=== PATIENT | female | born 1955 | race Caucasian/White ===

== ENCOUNTER 2017-01-24 10:29 | Emergency (ER) | payer BC ==
[~2017-01-24] VITALS: Ht 162.6 cm; Wt 82.3 kg
[~2017-01-24 10:29] MED LIST: ASPI81CH CHEW; ATOR1TAB18 PO; CARB25TA9 PO; HYDR-3583 PO; HYDR12.57 PO; LISI10TA3 PO; LORC10TA24 PO; MELO-1 PO; METH8TAB3 PO; METO25TA3 PO; NALO1TAB2 PO; ROPI1TAB72 PO
[2017-01-24 11:13] VITALS: BP 195/95; PULSE 76; RESP 18; TEMP 98.6; O2SAT 95
[2017-01-24] MEDS ORDERED: SODIUM CHLOR 0.9% 1000 ML INJ 1,000 ML IV ONE (11:49)
--- NOTE | 2017-01-24 11:58 | PD ---
HPI Chief Complaint: Abnormal Results Time Seen by Provider: 11:17 Travel History International Travel<30 days: No Contact w/Intl Traveler<30days: No Traveled to known affect area: No History of Present Illness HPI The patient is a 61-year-old female who presents to the emergency department for headache and elevated blood pressure. The patient has a history of hypertension and currently takes fosinopril 10 mg daily, hydrocodone eyes, and metoprolol. The patient recently saw her primary physician, Dr. Li, who stated she may need increase her lisinopril dose with her increasing blood pressure. The patient states over the last week she has had some right sided neck pain and right sided headache is located behind the right eye. She has mild pain with extraocular movement of the right eye when she looks medially, also complains of mild vision changes of the last 2 weeks but does note she recently had her eyeglasses changed. The patient is followed by a neurologist for Parkinson's disease and recently had an outpatient MRI several weeks ago and has an appointment in the near future with Dr. Cormier. She denies any nausea or vomiting with the headache, but does note the pain is located retro- orbitally and worse with extraocular movements. She denies any focal deficits. The patient does have a history of carotid stenosis on the right side less than 40%. PFSH Past Medical History Hx Anticoagulant Therapy: Yes (ASA) Arthritis: Yes Asthma: No Autoimmune Disease: No Blood Disorders: No Anxiety: Yes Depression: Yes Heart Rhythm Problems: No Cancer: No Cardiac Catheterization: Yes ([address] solitario 2003) Cardiovascular Problems: Yes (hx of heart attack) High Cholesterol: Yes Chemotherapy: No Chest Pain: No Congestive Heart Failure: No COPD: No Cerebrovascular Accident: No Coronary Artery Disease: Yes Diabetes: No Diminished Hearing: No Endocrine: No Gastrointestinal Disorders: Yes (ACID REFLUX) GERD: Yes Genitourinary: No Hepatitis: No Hiatal Hernia: No Hypertension: Yes Immune Disorder: No Kidney Stones: No Musculoskeletal: Yes Neurologic: Yes (parkinsons, dystonia) Parkinson's Disease: Yes Psychiatric: No Reproductive: No Respiratory: No Immunizations Current: Yes Migraines: No Myocardial Infarction: No Radiation Therapy: No Renal Failure: No Seizures: No Sickle Cell Disease: No Thyroid Disease: No Influenza Vaccination: No ?: Not Menopausal: Yes : 7 Para: 3 Miscarriage: 2 : 2 Ovarian Cysts: Yes Past Surgical History Abdominal Surgery: No AICD: No Arteriovenous Shunt: No Body Medical Devices: CARDIAC STENT Cardiac Surgery: Yes (2003) Coronary Artery Bypass Graft: No Ear Surgery: No Endocrine Surgery: No Eye Surgery: No Genitourinary Surgery: No Gynecologic Surgery: No Insulin Pump: No Joint Replacement: No Oral Surgery: No Pacemaker: No Thoracic Surgery: No Other Surgery: Yes (SINUS SURGERY X 3) Family History Family Myocardial Infarction: Yes Social History Alcohol Use: Yes (occasionally) Tobacco Use: No (FORMER) Substance Use: Yes (marijuana seldom) Allergies-Medications (Allergen,Severity, Reaction): Coded Allergies: meperidine (Unverified Allergy, Severe, BODY LOCKED UP, 01/24/17) Sulfa (Sulfonamide Antibiotics) (Unverified Allergy, Mild, HIVES, 01/24/17 ) midazolam (Unverified Allergy, Mild, Shortness of Breath, 01/24/17) penicillin G (Unverified Allergy, Mild, HIVES, 01/24/17) Reported Meds & Prescriptions Reported Meds & Active Scripts Active Reported Methylprednisolone 8 Mg Tab 4 Mg PO DAILY Meloxicam 15 Mg Tab 15 Mg PO DAILY Hydrocodone-Acetaminophen 10-325 mg Tab 1 Tab PO Q4H PRN Belviq (Lorcaserin) 10 Mg Tab 10 Mg PO BID Requip (Ropinirole) 1 Mg Tab 1 Mg PO TID Atorvastatin (Atorvastatin Calcium) 80 Mg Tab 80 Mg PO HS Aspirin 81 Mg Chew 81 Mg CHEW DAILY Movantik (Naloxegol) 25 Mg Tab 25 Mg PO DAILY Carbidopa-Levodopa 25-100 Mg Tab 2 Tab PO TID Metoprolol Tartrate 25 Mg Tab 25 Mg PO DAILY Lisinopril 10 Mg Tab 10 Mg PO DAILY Hydrochlorothiazide 12.5 Mg Cap 12.5 Mg PO DAILY Review of Systems Except as stated in HPI: all other systems reviewed are Neg General / Constitutional: No: Fever Eyes: Positive: Visual changes, No: Photophobia HENT: Positive: Headaches, Neck Pain Cardiovascular: No: Chest Pain or Discomfort Respiratory: No: Shortness of Breath Gastrointestinal: No: Nausea, Vomiting, Abdominal Pain Musculoskeletal: No: Weakness Neurologic: Positive: Headache, No: Change in Mentation Physical Exam Narrative GENERAL: Awake, alert, pleasant 61-year-old female who appears her stated age and is in no acute respiratory distress. SKIN: Focused skin assessment warm/dry. HEAD: Atraumatic. Normocephalic. EYES: Pupils equal and round. Pupils are 3 mm bilateral and reactive. Mild injection to the right eye, mild chemosis. No obvious proptosis. Extraocular muscles are intact, however, patient has pain when she looks medially with the right eye. Patient is able to see fingers at a distance of 2 feet without difficulty. Gunnar-Pen pressure is 12. ENT: No nasal bleeding or discharge. Mucous membranes pink and moist. NECK: Trachea midline. No JVD. No bruit noted on the right. CARDIOVASCULAR: Regular rate and rhythm. No murmur appreciated. RESPIRATORY: No accessory muscle use. Clear to auscultation. Breath sounds equal bilaterally. GASTROINTESTINAL: Abdomen soft, non-tender, nondistended. Hepatic and splenic margins not palpable. MUSCULOSKELETAL: No obvious deformities. No clubbing. No cyanosis. No edema. NEUROLOGICAL: Awake and alert. No obvious cranial nerve deficits. Motor grossly within normal limits. Normal speech. Nonfocal. Oriented 4. PSYCHIATRIC: Appropriate mood and affect; insight and judgment normal. Data Data Last Documented VS Vital Signs Date Time Temp Pulse Resp B/P (MAP) Pulse Ox O2 Delivery O2 Flow Rate FiO2 01/24/17 13:00 74 16 173/92 (119) 98 Room Air 01/24/17 11:13 98.6 Orders Orders Complete Blood Count With Diff (01/24/17 11:49) Comprehensive Metabolic Panel (01/24/17 11:49) [place] Sedimentation Rate (01/24/17 11:49) Ecg Monitoring (01/24/17 11:49) Iv Access Insert/Monitor (01/24/17 11:49) Oximetry (01/24/17 11:49) Sodium Chloride 0.9% Flush (Ns Flush) (01/24/17 12:00) Prochlorperazine Inj (Compazine Inj) (01/24/17 12:00) Diphenhydramine Inj (Benadryl Inj) (01/24/17 12:00) Sodium Chlor 0.9% 1000 Ml Inj (Ns 1000 M (01/24/17 11:49) Morphine Inj (Morphine Inj) (01/24/17 12:00) Proparacaine 0.5% Opth Soln (Alcaine 0.5 (01/24/17 12:00) Mrv Brain W/Wo Contrast (01/24/17 ) Mri Brain W/O Contrast (01/24/17 ) Ed Discharge Order (01/24/17 14:22) Labs Laboratory Tests Test 01/24/17 12:13 White Blood Count 13.4 TH/MM3 Red Blood Count 4.49 MIL/MM3 Hemoglobin 13.8 GM/DL Hematocrit 41.0 % Mean Corpuscular Volume 91.3 FL Mean Corpuscular Hemoglobin 30.6 PG Mean Corpuscular Hemoglobin Concent 33.6 % Red Cell Distribution Width 13.6 % Platelet Count 248 TH/MM3 Mean Platelet Volume 7.5 FL Neutrophils (%) (Auto) 87.1 % Lymphocytes (%) (Auto) 7.5 % Monocytes (%) (Auto) 3.6 % Eosinophils (%) (Auto) 0.1 % Basophils (%) (Auto) 1.7 % Neutrophils # (Auto) 11.7 TH/MM3 Lymphocytes # (Auto) 1.0 TH/MM3 Monocytes # (Auto) 0.5 TH/MM3 Eosinophils # (Auto) 0.0 TH/MM3 Basophils # (Auto) 0.2 TH/MM3 CBC Comment DIFF FINAL Differential Comment Erythrocyte Sedimentation Rate 5 mm/hr Blood Urea Nitrogen 18 MG/DL Creatinine 0.74 MG/DL Random Glucose 105 MG/DL Total Protein 7.4 GM/DL Albumin 3.9 GM/DL Calcium Level 9.6 MG/DL Alkaline Phosphatase 61 U/L Aspartate Amino Transf (AST/SGOT) 18 U/L Alanine Aminotransferase (ALT/SGPT) 15 U/L Total Bilirubin 0.6 MG/DL Sodium Level 140 MEQ/L Potassium Level 4.0 MEQ/L Chloride Level 106 MEQ/L Carbon Dioxide Level 27.5 MEQ/L Anion Gap 7 MEQ/L Estimat Glomerular Filtration Rate 80 ML/MIN MDM Medical Decision Making Medical Screen Exam Complete: Yes Emergency Medical Condition: Yes Medical Record Reviewed: Yes Interpretation(s) Laboratory Tests Test 01/24/17 12:13 White Blood Count 13.4 TH/MM3 Red Blood Count 4.49 MIL/MM3 Hemoglobin 13.8 GM/DL Hematocrit 41.0 % Mean Corpuscular Volume 91.3 FL Mean Corpuscular Hemoglobin 30.6 PG Mean Corpuscular Hemoglobin Concent 33.6 % Red Cell Distribution Width 13.6 % Platelet Count 248 TH/MM3 Mean Platelet Volume 7.5 FL Neutrophils (%) (Auto) 87.1 % Lymphocytes (%) (Auto) 7.5 % Monocytes (%) (Auto) 3.6 % Eosinophils (%) (Auto) 0.1 % Basophils (%) (Auto) 1.7 % Neutrophils # (Auto) 11.7 TH/MM3 Lymphocytes # (Auto) 1.0 TH/MM3 Monocytes # (Auto) 0.5 TH/MM3 Eosinophils # (Auto) 0.0 TH/MM3 Basophils # (Auto) 0.2 TH/MM3 CBC Comment DIFF FINAL Differential Comment Erythrocyte Sedimentation Rate 5 mm/hr Blood Urea Nitrogen 18 MG/DL Creatinine 0.74 MG/DL Random Glucose 105 MG/DL Total Protein 7.4 GM/DL Albumin 3.9 GM/DL Calcium Level 9.6 MG/DL Alkaline Phosphatase 61 U/L Aspartate Amino Transf (AST/SGOT) 18 U/L Alanine Aminotransferase (ALT/SGPT) 15 U/L Total Bilirubin 0.6 MG/DL Sodium Level 140 MEQ/L Potassium Level 4.0 MEQ/L Chloride Level 106 MEQ/L Carbon Dioxide Level 27.5 MEQ/L Anion Gap 7 MEQ/L Estimat Glomerular Filtration Rate 80 ML/MIN Differential Diagnosis Differential diagnosis includes glaucoma, cavernous sinus thrombosis, cerebral venous thrombosis, sinusitis, carotid dissection, migraine, intracranial hemorrhage, hypertension. Narrative Course IV was established, labs are drawn and sent, and the patient was placed on cardiac telemetry monitoring and continuous pulse oximetry monitoring. One drop of proparacaine was applied to the right eye and Gunnar-Pen was utilized to obtain a pressure, pressure was 12, normal. MRI with and without contrast was ordered to evaluate for possible cavernous sinus thrombosis. The patient was administered morphine, Benadryl, Compazine, and IV fluids. Labs are unremarkable, sedimentation rate is normal at 5. MRI/MRV were ordered, however , the patient went to MRI was unable to tolerate the MRI, she normally has outpatient open MRI. MRI staff offer sedation therapy, however, the patient declined. She would prefer to follow-up with her neurologist tomorrow. She will be provided a copy of her labs at discharge and is advised to take her lisinopril 10 mg twice a day as directed by her primary physician and return if symptoms worsen or progress. The patient agrees and understands. Diagnosis Primary Impression: Cephalgia Qualified Codes: R51 - Headache Additional Impression: Hypertension Qualified Codes: I10 - Essential (primary) hypertension Additional Instructions: Please provide the patient a copy of her labs at discharge. Follow-up with your neurologist, Dr. Cormier, tomorrow as tolerated. Return if symptoms worsen or progress. Monitor blood pressure. Keep a blood pressure log. Med/Other Pt SpecificInfo: Existing Med Changed (take lisinopril 10 mg twice a day) Disposition: 01 DISCHARGE HOME Condition: Stable Navneet Wang MD Jan 24, 2017 11:58
[2017-01-24 12:00] VITALS: BP 153/96; PULSE 69; RESP 16; O2SAT 98
[2017-01-24] MEDS ORDERED: PROCHLORPERAZINE INJ 10 MG/2 ML VIAL IVP ONE (12:00)
[2017-01-24] MEDS ORDERED: MORPHINE SULFATE 4 MG/ML INJ IV PUSH ONE (12:00)
[2017-01-24] MEDS ORDERED: SODIUM CHLORIDE 0.9% FLUSH 10 ML FLUSH IVF PRN (12:00)
[2017-01-24] MEDS ORDERED: PROPARACAINE HCL 0.5% OPHT SOLN 15 ML BTL RIGHT EYE ONE (12:00)
[2017-01-24] MEDS ORDERED: diphenhydrAMINE HCL 50 MG/ML VIAL IVP ONE (12:00)
[2017-01-24 12:10] VITALS: RESP 16; O2SAT 97
[2017-01-24 12:22] LABS: AUTOMATED NEUTROPHIL # 11.7 TH/MM3 (1.8-7.7); BASOPHIL # 0.2 TH/MM3 (0-0.2); BASOPHIL % 1.7 % (0.0-2.0); EOSINOPHIL % 0.1 % (0.0-4.0); HEMOGLOBIN 13.8 GM/DL (11.6-15.3); LYMPH % 7.5 % (9.0-44.0); MEAN CELL VOLUME 91.3 FL (80.0-100.0); MEAN CORPUSCULAR HEMOGLOBIN 30.6 PG (27.0-34.0); MEAN CORPUSCULAR HGB CONC 33.6 % (32.0-36.0); MEAN PLATELET VOLUME 7.5 FL (7.0-11.0); MONO % 3.6 % (0.0-8.0); MONOCYTE # 0.5 TH/MM3 (0-0.9); NEUT % 87.1 % (16.0-70.0); PLATELET COUNT 248 TH/MM3 (150-450); RED BLOOD COUNT 4.49 MIL/MM3 (4.00-5.30); RED CELL DISTRIBUTION WIDTH 13.6 % (11.6-17.2); WHITE BLOOD COUNT 13.4 TH/MM3 (4.0-11.0)
[2017-01-24 12:29] LABS: CHLORIDE 106 MEQ/L (98-107); SODIUM (NA) 140 MEQ/L (136-145)
[2017-01-24 12:32] LABS: CALCIUM 9.6 MG/DL (8.5-10.1)
[2017-01-24 12:33] LABS: ALBUMIN 3.9 GM/DL (3.4-5.0); BICARBONATE 27.5 MEQ/L (21.0-32.0); BLOOD UREA NITROGEN 18 MG/DL (7-18); GLUCOSE,RANDOM 105 MG/DL (74-106)
[2017-01-24 12:36] LABS: ALT (GPT) 15 U/L (10-53); AST (GOT) 18 U/L (15-37); CREATININE 0.74 MG/DL (0.50-1.00); GLOMERULAR FILTRATION RATE 80 ML/MIN (>89)
[2017-01-24 12:37] LABS: TOTAL BILIRUBIN ADULT 0.6 MG/DL (0.2-1.0)
[2017-01-24 12:38] LABS: TOTAL PROTEIN 7.4 GM/DL (6.4-8.2)
[2017-01-24 12:39] LABS: ALKALINE PHOSPHATASE 61 U/L (45-117)
[2017-01-24 13:00] VITALS: BP 173/92; PULSE 74; RESP 16; O2SAT 98
[2017-01-24 14:00] VITALS: BP 162/92; PULSE 69; RESP 16; O2SAT 97
== END 2017-01-24 14:41 | disposition home or self-care (01) ==
LOC: PHED 10:29
DX: R51 Headache (principal); I10 Essential (primary) hypertension; M54.2 Cervicalgia; G20 Parkinson's disease; Z79.899 Other long term (current) drug therapy; Z87.891 Personal history of nicotine dependence
CPT/HCPCS: 80053; 85025; 85652; 96361; 96374; 96375; 99284; J0780; J1200; J2270; J7030

== ENCOUNTER → 2017-03-02 | Outpatient (CLI) | payer BC ==
[~2017-03-02] MED LIST changes: +ASPI-516 CHEW; -ASPI81CH CHEW; -ATOR1TAB18 PO; +ATOR80TA45 PO; +LISI-515 PO; -LISI10TA3 PO; -LORC10TA24 PO; -MELO-1 PO; +MELO15TA20 PO; -METO25TA3 PO; +METO50TA PO; +REQU2TAB PO
[2017-03-02 12:53] LABS: AUTOMATED NEUTROPHIL # 4.8 TH/MM3 (1.8-7.7); BASOPHIL # 0.1 TH/MM3 (0-0.2); BASOPHIL % 0.8 % (0.0-2.0); EOSINOPHIL % 0.3 % (0.0-4.0); HEMATOCRIT 38.7 % (35.0-46.0); HEMO FLAGS DIFF FINAL; LYMPH % 20.3 % (9.0-44.0); LYMPHOCYTE # 1.4 TH/MM3 (1.0-4.8); MEAN CELL VOLUME 94.8 FL (80.0-100.0); MEAN CORPUSCULAR HEMOGLOBIN 31.6 PG (27.0-34.0); MEAN CORPUSCULAR HGB CONC 33.3 % (32.0-36.0); MONO % 8.5 % (0.0-8.0); NEUT % 70.1 % (16.0-70.0); PLATELET COUNT 252 TH/MM3 (150-450); RED BLOOD COUNT 4.08 MIL/MM3 (4.00-5.30); RED CELL DISTRIBUTION WIDTH 13.8 % (11.6-17.2); WHITE BLOOD COUNT 6.8 TH/MM3 (4.0-11.0)
[2017-03-02 12:57] LABS: BACTERIA, URINE RARE /hpf; BLOOD, URINE NEG (NEG); COMMENT (UR) CULT NOT INDICATED; CULTURE IF INDICATED CULT NOT INDICATED; GLUCOSE,URINE NEG (NEG); HYALINE CAST, URINE 1 /lpf (RARE); KETONE, URINE NEG (NEG); MUCUS URINE FEW /lpf (OCC); NITRITE,URINE NEG (NEG); SQUAMOUS EPITHELIAL CELL URINE 1 /hpf (0-5); URINE COLOR YELLOW (YELLW/STRAW)
[2017-03-02 13:01] LABS: APTT (PATIENT) 22.9 SEC (24.3-30.1); INTERNATIONAL NORMALIZED RATIO 1.2 RATIO
[2017-03-02 13:05] LABS: ANION GAP 5 MEQ/L (5-15); BICARBONATE 31.1 MEQ/L (21.0-32.0); BLOOD UREA NITROGEN 19 MG/DL (7-18); CHLORIDE 103 MEQ/L (98-107); GLOMERULAR FILTRATION RATE 85 ML/MIN (>89); GLUCOSE,FASTING 98 MG/DL (74-99); POTASSIUM 4.2 MEQ/L (3.5-5.1); SODIUM (NA) 139 MEQ/L (136-145)
[2017-03-02 13:09] LABS: ALKALINE PHOSPHATASE 67 U/L (45-117); ALT (GPT) 12 U/L (10-53); AST (GOT) 17 U/L (15-37); TOTAL BILIRUBIN ADULT 0.8 MG/DL (0.2-1.0)
== END ==
LOC: CPRE 12:15
PROVIDERS: ATTEND Neurological Surgery
DX: Z01.812 Encounter for preprocedural laboratory examination (principal); M51.16 Intervertebral disc disorders with radiculopathy, lumbar region
CPT/HCPCS: 36415; 80053; 81001; 85025; 85610; 85730

== ENCOUNTER 2017-03-06 06:00 | Day surgery (SDC) | payer BC ==
--- NOTE | 2017-03-03 13:38 | MH ---
cc: ANA SIDDIQUI M.D. DATE OF ADMISSION: 03/06/2017 ADMITTING DIAGNOSIS Herniated nucleus pulposus lumbar spine. HISTORY OF PRESENT ILLNESS This is a 61-year-old female who presented to us for evaluation of low back pain. She states that she has had pain in the left buttocks area that extends up into her lower back. Her pain is currently 5/10, although can go up to 10/10. She was last seen in April 2016 for follow-up after undergoing an L4-L5 decompressive laminectomy with medial facetectomy on 03/15/2016. She states that she has difficulty putting pressure on her left foot currently. She states that she gets muscle spasms in the lower buttock and back area that wakes her up. She states that she does not feel stable on her legs. She has a history of Parkinson's which also effects her gait. She has complaints of urinary urgency. She has had physical therapy which did not help. She has also seen Dr. Lubin for pain management who has done an epidural scar tissue lysis and this has not helped. She states that when she wakes up in the morning she is very stiff and has difficulty getting out of bed. She has difficulty straightening up. She uses a walker especially at night when she goes to the bathroom. She has urge type incontinence. She has urinary frequency for the last year in particular. She denies any paresthesias in the lower extremities. She gets significant cramps in the right leg but not the left leg. She states that she has also had epidural steroid injections with pain management. She states that they helped for a week. PAST MEDICAL HISTORY 1. Sinus surgery. 2. Coronary artery stent placement. 3. Hypertension. 4. Parkinson's disease. MEDICATIONS Current medications: 1. Metoprolol tartrate 50 mg daily. 2. Lisinopril 20 mg p.o. daily. 3. [place] 10/325 q.4h. p.r.n. pain. 4. Ropinirole 1 mg p.o. t.i.d. 5. Atorvastatin 80 mg p.o. q.h.s. 6. Aspirin 81 mg daily; this was placed on hold prior to surgical intervention. 7. Carbidopa/levodopa 25/100 mg, two tablets p.o. t.i.d. 8. Lorcaserin 10 mg p.o. b.i.d. ALLERGIES 1. SULFA. 2. VERSED. 3. PENICILLIN. 4. MEPERIDINE. FAMILY HISTORY Mother is at [id number] with heart disease. Father is at [id number] with heart disease. Brother is at [id number]-[id number] with heart disease. A brother is alive at [id number]. SOCIAL HISTORY She has three children. She quit smoking in 1991. She drinks 0-2 drinks per day. REVIEW OF SYSTEMS CONSTITUTIONAL: She denies any fever or chills. EARS, NOSE, AND THROAT: No pharyngitis, exudates or bloody drainage from the nose. CARDIOVASCULAR: She denies any chest pain or palpitations. RESPIRATORY: No cough or shortness breath. GENITOURINARY: No dysuria or hematuria. MUSCULOSKELETAL: Positive for low back pain and left leg pain. SKIN: No rashes or pruritus. NEUROLOGIC: No difficulty with speech or memory. GASTROINTESTINAL: No nausea or vomiting. PSYCHIATRIC: No anxiety or depression symptoms. ENDOCRINE: No polyuria or polydipsia. HEMATOLOGIC: No bruising or bleeding tendencies. PHYSICAL EXAMINATION HEAD: Normocephalic, atraumatic. NECK: Supple. No carotid bruits on auscultation. LUNGS: Clear to auscultation bilaterally. HEART: Regular rate and rhythm, normal S1, S2. ABDOMEN: Soft, nontender. Positive bowel sounds. SKIN: A well-healed lumbar spine incision without any signs of infection or complication. EXTREMITIES: She moves her lower extremities with 5/5 strength. She ambulates without any assistive device. NEUROLOGIC: She is awake, alert and oriented. Cranial nerves II through XII are grossly intact. Her speech is fluent. Comprehension is good. Sensation is intact in the lower extremities. Reflexes are diminished in the lower extremities. DATA REVIEWED MRI of the lumbar spine from October 07, 2016 reveals a herniated disc fragment at the L4-L5 level eccentric to the left side with degenerative disc disease and right L5-S1 pedicle screw. She states that her right leg pain resolved after her L5-S1 TLIF a year ago. IMPRESSION A 61-year-old female who presented for persistent left paraspinal back pain which radiates into the buttock and lateral thigh and calf. She has undergone interventional pain management with limited relief. She is taking Lortab 10, although not adequately controlling her pain. The patient is requesting we proceed with surgical intervention. She has a herniated disc fragment at the L4-L5 level eccentric to the left side with degenerative disc disease and right L5-S1 pedicle screws. She states that the right leg pain resolved after her L5-S1 TLIF a year ago. PLAN We have discussed treatment options and the patient is wanting to proceed with surgical intervention. We have therefore recommended a left L4-L5 microdiscectomy. The procedure as well as the risk, benefit, alternative and recovery time were explained in great detail with the patient. We have discussed the risks involved with surgery include but not limited to bleeding, infection, muscle weakness, voice hoarseness, difficulty swallowing, heart attack, stroke, blood clots, disc re-herniation, scar tissue formation, among others. The patient states that she understands the procedure as well as the risks, benefits and alternatives and she is requesting that we proceed and she was therefore scheduled accordingly. Dictated by: Danis Huber PA-C MD YAYA Beverly/KELLEE /12:56 PM /1:20 PM
[~2017-03-06] VITALS: Ht 162.6 cm; Wt 80.4 kg
[~2017-03-06 06:00] MED LIST changes: -ROPI1TAB72 PO
[2017-03-06] MEDS ORDERED: THROMBIN (TOPICAL) 5,000 UNIT VIAL ONE (06:41)
[2017-03-06] MEDS ORDERED: VANCOMYCIN HCL 1000 MG VIAL ONE (06:41)
[2017-03-06] MEDS ORDERED: BUPIVACAINE/EPINEPHRINE 0.5% PF 30 ML VIAL ONE (06:42)
[2017-03-06] MEDS ORDERED: methylPREDNISolone ACETATE 40 MG/ML VIAL ONE ×2 (06:42→10:20)
[2017-03-06] MEDS ORDERED: GELFOAM SIZE 100 ONE (06:42)
[2017-03-06] MEDS ORDERED: VANCOMYCIN HCL 1000 MG ON-CALL/NS 250 ML IV SCH ×2 (06:45)
[2017-03-06] MEDS ORDERED: METOPROLOL TARTRATE 25 MG TAB PO PRN (06:45)
[2017-03-06] MEDS ORDERED: POVIDONE IODINE 5% (ANTISEPSIS KIT) 4 APPLICATIONS EACH NARE PRN (06:45)
[2017-03-06] MEDS ORDERED: SODIUM CHLORID 0.9% 500 ML IV PRN (06:45)
[2017-03-06] MEDS ORDERED: LACTATED RINGER'S 1000 ML IV PRN (06:45)
[2017-03-06] MEDS ORDERED: CHLORHEXIDINE GLUCONATE 2 % 1 PACK (2 CLOTHS) TOPICAL PRN (06:45)
[2017-03-06] MEDS ORDERED: ARTIFICIAL TEARS OPTH OINT 3.5 APPLIC/3.5 GM TUBO ONE (06:49)
[2017-03-06] MEDS ORDERED: ACETAMINOPHEN 1000 MG/100 ML 100 ML IV ONE (06:49)
[2017-03-06] MEDS ORDERED: SODIUM CHLOR 0.9% 1000 ML INJ 1,000 ML IV SCH (08:30)
[2017-03-06] MEDS ORDERED: *morphine SULFATE 8 MG/ML PERIprocedure ONLY ONE (10:54)
--- NOTE | 2017-03-06 10:56 | PD.OP ---
cc: Dilip Li MD Operative Report Date of Surgery: Mar 06, 2017 Preoperative Diagnosis: Lumbar L4-5 recurrent disc herniation with associated spinal and foraminal stenosis with epidural scar tissue; low back pain with intractable radiculopathy Postoperative Diagnosis: Same Procedure: Lumbar redo right L4-5 hemilaminotomy with medial facetectomy and foraminotomy; L4-5 microdiscectomy with epidural lysis; microsurgical technique Anesthesia: Gen. endotracheal by Regan trent Surgeon: Chance Perez M.D. Production Supervisor(s): Mirian Fuentes Operation and Findings: Following administration of general endotracheal anesthesia, patient received vancomycin 1 g intravenously. Sequential compression devices were placed for DVT prophylaxis. She was then turned in prone position on Naveed frame and the Franky table and all pressure points adequately padded. The lumbar region was then shaved and prepped with a Betadine and ChloraPrep. Sterile draping undertaken with Ioban. Midline incision overlying the L4-5 level at the previous site was then made after infiltrating the skin with 0.5% Marcaine with epinephrine solution. The skin incision was made extending down through the fascia and then using the subperiosteal plane on the right side the muscular attachments to the spinous process and lamina were detached. Intraoperative fluoroscopy was used for level confirmation and further dissection undertaken using microtechnique with microscope magnification. The hemilaminotomy defects were evident and the laminotomy edges identified and dissected out from the epidural scar tissue until more normal dura was evident. The medial portion of the right L4-5 facet was also drilled out further expose the normal dura and the foramen. Epidural venous stasis which he with the bipolar cautery along with Gelfoam and thrombin and bone wax used at the laminotomy edges for hemostasis. There was epidural scar tissue and epidural lysis was undertaken to free up the dura and the nerve root from the underlying scarred down and extruded disc fragment also. The thecal sac was then gently retracted with a nerve root retractor and an extruded disc fragment was identified which was inferiorly migrated. Fragments were removed with pituitary forceps and the nerve root impingement along with thecal sac compression decompressed. The area was then copiously irrigated with vancomycin solution. Depo-Medrol 40 mg also injected in the epidural space. The retractors removed and the muscle fascia proximal using 2-0 Vicryl interrupted stitches. 3-0 Vicryl subcuticular stitches were also placed in an interrupted fashion and planned skin closure was with Mastisol and Steri-Strips. A sterile dressing was then applied and the patient then turned in the supine position and extubated and taken to recovery room in stable condition. There were no intraoperative complications and all sponge and needle count was correct at the end of the procedure. Estimated blood loss about 120 cc. Chance Perez MD Mar 06, 2017 10:56
[2017-03-06] MEDS ORDERED: HYDR-3583 PO (10:57)
[2017-03-06] MEDS ORDERED: HYDROmorphone HCL PF 2 MG/ML VIAL ONE (11:02)
[2017-03-06] MEDS ORDERED: DO NOT ADM ANY ANTICOAGULANT DRUGS PRN (11:15)
[2017-03-06 11:30] VITALS: TEMP 97.6
[2017-03-06] MEDS ORDERED: HYDROmorphone HCL PF 2 MG/ML VIAL IV ONE (11:30)
--- NOTE | 2017-03-06 11:49 | RADRPT ---
EXAM DATE/TIME: 03/06/2017 08:39 [facility] COMPARISON: SPINE LUMBAR LATERAL ONLY, March 15, 2016, 9:18. INDICATIONS : L4-L5 lumbar alyssa-laminectomy, micro-diskectomy. Level localization. MEDICAL HISTORY : None. SURGICAL HISTORY : Fusion, lumbar. ENCOUNTER: Initial ACUITY: 1 day PAIN SCORE: Non-responsive. LOCATION: Lumbar spine. FINDINGS: A single lateral view of the lumbar spine was performed. Posterior transpedicular fixation at L5-S1 w ith intervertebral disc prosthesis. Minimal grade 1 anterolisthesis of L5 on S1. Hardware appears to be intact. Metallic retractor is seen posterior to the L4-5 disc interspace with a metallic marker lo cated just posterior to the superior endplate of L5. CONCLUSION: 1. Transpedicular posterior fixation at the lumbosacral junction with intervertebral disc prosthesis. Minimal grade 1 anterolisthesis of L5 on S1. Hardware appears to be intact. 2. Metallic retractor posterior to L4-5 with a metallic marker posterior to the superior endplate of L5. Casa Ibrahim MD on March 06, 2017 at 11:45 Board Certified Radiologist. This report was verified electronically.
[2017-03-06] MEDS ORDERED: ONDANSETRON HCL 4 MG/2 ML VIAL IV PUSH PRN (12:00)
[2017-03-06] MEDS ORDERED: MORPHINE SULFATE 4 MG/ML INJ IV PUSH PRN (12:00)
[2017-03-06] MEDS ORDERED: ACETAMINOPHEN/HYDROcodone 325 MG/10 MG TAB PO PRN (12:00)
[2017-03-06 12:05] VITALS: BP 122/64; PULSE 60; RESP 16; O2SAT 95
== END 2017-03-06 12:15 | disposition home or self-care (01) ==
LOC: HSDC 06:00
PROVIDERS: ATTEND Neurological Surgery
DX: M51.16 Intervertebral disc disorders with radiculopathy, lumbar region (principal); G96.12 Meningeal adhesions (cerebral) (spinal); R39.15 Urgency of urination; I10 Essential (primary) hypertension; G20 Parkinson's disease; Z95.5 Presence of coronary angioplasty implant and graft
CPT/HCPCS: 00630; 63042; 72020; 76000; J0131; J1030; J2270; J3370; J7050; J7120; J1170